=== PATIENT | male | born 1955 | race Caucasian/White ===

== ENCOUNTER 2019-12-10 06:35 | Inpatient (IN) | payer BC, OTHER ==
[~2019-12-10] VITALS: Ht 177.8 cm; Wt 90.7 kg
[2019-12-10 06:35] VITALS: BP_SYST 151
[2019-12-10] MEDS ORDERED: NACL 0.9% 1,000 ML IV ONE (06:47)
[2019-12-10] MEDS ORDERED: HYDR-3917 PO (07:37)
[2019-12-10] MEDS ORDERED: MULT-1089 PO (07:37)
[2019-12-10] MEDS ORDERED: RIVA10TA PO (07:37)
[2019-12-10] MEDS ORDERED: PRAS25CA7 PO (07:37)
[2019-12-10] MEDS ORDERED: METO50TA7 PO (07:37)
[2019-12-10] MEDS ORDERED: SILD20TA PO (07:37)
[2019-12-10] MEDS ORDERED: GABA-533 PO (07:37)
[2019-12-10] MEDS ORDERED: METH750T3 PO (07:37)
[2019-12-10] MEDS ORDERED: LIP40 PO (07:37)
[2019-12-10] MEDS ORDERED: TAMS-11 PO (07:37)
[2019-12-10] MEDS ORDERED: VITA1CAP PO (07:37)
[2019-12-10] MEDS ORDERED: CLON2TAB11 PO (07:37)
[2019-12-10] MEDS ORDERED: METH2.5T PO (07:37)
[2019-12-10] MEDS ORDERED: DULO60CA41 PO (07:37)
[2019-12-10] MEDS ORDERED: HYDR200T80 PO (07:37)
[2019-12-10] MEDS ORDERED: DOCU-144 PO (07:37)
[2019-12-10] MEDS ORDERED: DEXT10TA18 PO (07:37)
[2019-12-10] MEDS ORDERED: MELA3TAB64 PO (07:37)
[2019-12-10] MEDS ORDERED: VITD2000 PO (07:37)
[2019-12-10] MEDS ORDERED: LISD60TA PO (07:37)
[2019-12-10] MEDS ORDERED: FOLI-43 PO (07:37)
[2019-12-10] MEDS ORDERED: ASPI-1153 PO (07:37)
[2019-12-10 07:41] LABS: BASOPHILS % (AUTO) 0.3 % (0.0-2.0); EOSINOPHILS # (AUTO) 0.1 K/uL (0.0-0.4); EOSINOPHILS % (AUTO) 2.5 % (0.0-4.0); HEMATOCRIT 43.6 % (36-54); HEMOGLOBIN 14.2 g/dL (14.0-18.0); LYMPHOCYTES # (AUTO) 1.4 K/uL (1.0-5.5); LYMPHOCYTES % (AUTO) 31.4 % (20.5-51.5); MEAN CORPUSCULAR HEMOGLOBIN 29 pg (27-31); MEAN CORPUSCULAR HGB CONC 33 % (32-36); MEAN CORPUSCULAR VOLUME 89 fL (79.0-98.0); MONOCYTES # (AUTO) 0.3 K/uL (0.0-1.0); NEUTROPHILS # (AUTO) 2.5 K/uL (1.8-7.7); NEUTROPHILS % (AUTO) 57.8 % (40.0-70.0); PLATELET COUNT (AUTO) 255 K/uL (130-430); RED BLOOD CELL COUNT(AUTO) 4.89 MIL/uL (4.2-6.2); WHITE BLOOD COUNT (AUTO) 4.4 K/uL (4.8-10.8)
[2019-12-10 07:50] LABS: PROTHROMBIN TIME 10.1 SECS (9.5-12.5)
[2019-12-10 07:54] LABS: CALCIUM 8.8 mg/dL (8.4-11.0); CREATININE 0.91 mg/dL (0.55-1.30); POTASSIUM 3.2 mmol/L (3.5-5.1)
[2019-12-10 07:58] LABS: ALBUMIN 3.8 g/dL (3.4-4.8); TOTAL BILIRUBIN 0.4 mg/dL (0.0-1.0)
[2019-12-10] MEDS ORDERED: DIPHENHYDRAMINE INJ 50 MG/ML VIAL IVP ONE (09:15)
[2019-12-10] MEDS ORDERED: methylPREDNISolone SOD SUCC/PF 62.5 MG/ML VIAL IVP ONE (09:15)
[2019-12-10] MEDS ORDERED: IOHEXOL 350 mgI/mL, 150 ML INFUS..BTL IV ONE (09:39)
[2019-12-10 11:00] LABS: BILIRUBIN,URINE NEGATIVE (NEGATIVE); BLOOD, URINE NEGATIVE (NEGATIVE); CLARITY/URINE CLEAR (CLEAR); COLOR,URINE YELLOW (YELLOW); GLUCOSE,URINE NEGATIVE (NEGATIVE); KETONES,URINE NEGATIVE (NEGATIVE); LEUKOCYTE ESTERASE ,URINE NEGATIVE (NEGATIVE); NITRITE, URINE NEGATIVE (NEGATIVE); PROTEIN URINE NEGATIVE (NEGATIVE); UROBILINOGEN,URINE 0.2 (0.2-1.0)
[2019-12-10 11:12] LABS: BARBITURATE, URINE NEGATIVE (NEG <=200); BENZODIAZEPINE, URINE NEGATIVE (NEG <=150); CANNABINOID, URINE NEGATIVE (NEG <=50); COCAINE, URINE NEGATIVE (NEG <=150); METHAMPHETAMINES SCREEN,URINE NEGATIVE (NEG <=500); OPIATE, URINE POSITIVE (NEG <=100); PHENCYCLIDINE SCREEN,URINE NEGATIVE (NEG <=25); UR TRICYCLIC ANTIDEPRESSANTS NEGATIVE (NEG <=300); URINE AMPHETAMINE POSITIVE (NEG <=500); URINE METHADONE NEGATIVE (NEG <=200); URINE OXYCODONE SCREEN NEGATIVE (NEG <=100); URINE PROPOXYPHENE SCREEN NEGATIVE (NEG <=300)
[2019-12-10] MEDS ORDERED: FLU VACC TS2019(65UP)/MF59C/PF 45 MCG/0.5 ML SYRINGE I.M. PRN (12:00)
[2019-12-10 16:45] VITALS: BP_SYST 109
[2019-12-10] MEDS ORDERED: ASPIRIN 325 MG TABLET (ECOTRIN) PO ONE (18:30)
[2019-12-10 20:00] VITALS: BP_SYST 143
[2019-12-10] MEDS: ATORVASTATIN 20 MG TABLET PO SCH (21:33)
[2019-12-10] MEDS: DULoxetine HCL 30 MG CAPSULE.DR (CYMBALTA) PO SCH (21:33)
[2019-12-10] MEDS: TAMSULOSIN HCL 0.4 MG CAP PO SCH (21:33)
[2019-12-10] MEDS: GABAPENTIN 400 MG CAPSULE PO SCH (21:34)
[2019-12-10] MEDS ORDERED: DIPHENHYDRAMINE HCL 25 MG CAPSULE PO PRN (22:45)
[2019-12-11] VITALS: BP_SYST 126
[2019-12-11 06:32] LABS: BASOPHILS % (AUTO) 0.3 % (0.0-2.0); EOSINOPHILS # (AUTO) 0.1 K/uL (0.0-0.4); EOSINOPHILS % (AUTO) 0.4 % (0.0-4.0); HEMOGLOBIN 13.7 g/dL (14.0-18.0); LYMPHOCYTES # (AUTO) 0.7 K/uL (1.0-5.5); LYMPHOCYTES % (AUTO) 4.3 % (20.5-51.5); MEAN CORPUSCULAR HEMOGLOBIN 29 pg (27-31); MEAN CORPUSCULAR HGB CONC 33 % (32-36); MEAN CORPUSCULAR VOLUME 88 fL (79.0-98.0); MONOCYTES # (AUTO) 0.5 K/uL (0.0-1.0); MONOCYTES % (AUTO) 3.1 % (1.7-9.3); NEUTROPHILS # (AUTO) 15.7 K/uL (1.8-7.7); NEUTROPHILS % (AUTO) 91.9 % (40.0-70.0); PLATELET COUNT (AUTO) 267 K/uL (130-430); RED BLOOD CELL COUNT(AUTO) 4.76 MIL/uL (4.2-6.2); RED CELL DISTRIBUTION WIDTH 16.7 % (9.0-15.0); WHITE BLOOD COUNT (AUTO) 17.1 K/uL (4.8-10.8)
[2019-12-11 07:03] LABS: CALCIUM 8.9 mg/dL (8.4-11.0); CREATININE 0.87 mg/dL (0.55-1.30); POTASSIUM 3.7 mmol/L (3.5-5.1); THYROID STIMULATING HORMONE 0.2 uIu/mL (0.36-3.74)
[2019-12-11 08:00] VITALS: BP_SYST 117
[2019-12-11] MEDS: GABAPENTIN 400 MG CAPSULE PO SCH ×2 (08:37→21:22)
[2019-12-11] MEDS: clonazePAM 0.5 MG TABLET PO SCH (08:37)
[2019-12-11] MEDS: ASPIRIN 325 MG TABLET (ECOTRIN) PO SCH (08:37)
[2019-12-11] MEDS: FOLIC ACID 1 MG TABLET PO SCH (08:37)
[2019-12-11] MEDS: METOPROLOL SUCCINATE 50 MG TAB.SR.24H (TOPROL XL) PO SCH (08:38)
[2019-12-11 08:39] LABS: ERYTHROCYTE SEDIMENTATION RATE 4 MM/HR (0-15)
[2019-12-11] MEDS: DULoxetine HCL 30 MG CAPSULE.DR (CYMBALTA) PO SCH ×2 (08:46→21:20)
[2019-12-11] MEDS ORDERED: ASPIRIN 81 MG TABLET(ECOTRIN) PO SCH (09:00)
[2019-12-11] MEDS ORDERED: LORazepam 2 MG/ML VIAL IVP ONE (10:45)
[2019-12-11] MEDS ORDERED: ASPIRIN 325 MG TABLET PO SCH (10:45)
[2019-12-11] MEDS ORDERED: LORazepam 2 MG/ML VIAL ONE (10:59)
[2019-12-11 12:38] VITALS: BP_SYST 136
[2019-12-11 16:41] VITALS: BP_SYST 131
[2019-12-11 20:00] VITALS: BP_SYST 115
[2019-12-11] MEDS: ATORVASTATIN 20 MG TABLET PO SCH (21:20)
[2019-12-11] MEDS: TAMSULOSIN HCL 0.4 MG CAP PO SCH (21:22)
[2019-12-12 03:35] VITALS: BP_SYST 120
[2019-12-12 08:00] VITALS: BP_SYST 124
[2019-12-12] MEDS: clonazePAM 0.5 MG TABLET PO SCH (09:00)
[2019-12-12] MEDS: DULoxetine HCL 30 MG CAPSULE.DR (CYMBALTA) PO SCH ×2 (09:03→21:00)
[2019-12-12] MEDS: GABAPENTIN 400 MG CAPSULE PO SCH ×2 (09:03→21:00)
[2019-12-12] MEDS: FOLIC ACID 1 MG TABLET PO SCH (09:04)
[2019-12-12] MEDS: METOPROLOL SUCCINATE 50 MG TAB.SR.24H (TOPROL XL) PO SCH (09:04)
[2019-12-12] MEDS: ASPIRIN 325 MG TABLET (ECOTRIN) PO SCH (09:04)
[2019-12-12] MEDS ORDERED: COMMUNICATION ORDER XX ONE (09:30)
[2019-12-12 12:36] VITALS: BP_SYST 92
[2019-12-12 17:33] VITALS: BP_SYST 125
[2019-12-12 19:30] VITALS: BP_SYST 134
[2019-12-12] MEDS: ATORVASTATIN 20 MG TABLET PO SCH (21:00)
[2019-12-12] MEDS ORDERED: clonazePAM 0.5 MG TABLET PO SCH (21:00)
[2019-12-12] MEDS: TAMSULOSIN HCL 0.4 MG CAP PO SCH (21:00)
== END 2019-12-12 22:08 | disposition home or self-care (01) | DRG 65 ==
LOC: SED 06:35 → STU 10:47 → UNDOADMIN 10:47 → STU 11:03
PROVIDERS: ADMIT Internal Medicine Hospice and Palliative Medicine; ATTEND Internal Medicine Hospice and Palliative Medicine
DX: I63.81 Other cerebral infarction due to occlusion or stenosis of small artery (principal); G81.91 Hemiplegia, unspecified affecting right dominant side; I10 Essential (primary) hypertension; G89.29 Other chronic pain; F15.10 Other stimulant abuse, uncomplicated; I25.10 Atherosclerotic heart disease of native coronary artery without angina pectoris; F98.8 Other specified behavioral and emotional disorders with onset usually occurring in childhood and adolescence; M21.372 Foot drop, left foot; Z79.899 Other long term (current) drug therapy; Z95.5 Presence of coronary angioplasty implant and graft; Z86.73 Personal history of transient ischemic attack (TIA), and cerebral infarction without residual deficits; Z79.82 Long term (current) use of aspirin; Z91.041 Radiographic dye allergy status; Z87.81 Personal history of (healed) traumatic fracture
CPT/HCPCS: 36415; 70450-TC; 70496; 70498; 70551; 71045; 80048; 80053; 80061; 80307; 81003; 84439; 84443-TC; 84484; 85025; 85610-TC; 85651-TC; 85730-TC; 86886; 86900; 86901; 93005; 93306; 96361; 96374; 96375; 99291; G0378; J1200; J2060; J2930; Q0163; Q9967

== ENCOUNTER 2021-02-16 16:53 | Emergency (ER) | payer OTHER ==
[~2021-02-16] VITALS: Ht 177.8 cm; Wt 93.0 kg
[~2021-02-16 16:53] MED LIST: ASPI-1393 PO; CLON2TAB11 PO; DOCU-144 PO; DULO60CA41 PO; FOLI-43 PO; GABA-533 PO; HYDR-3917 PO; HYDR200T80 PO; LIP40 PO; LISD60TA PO; MELA3TAB41 PO; METH-634 PO; METH2.5T PO; METO50TA7 PO; MULT-1089 PO; PRAS25CA7 PO; RIVA10TA PO; SILD20TA PO; TAMS-11 PO; VITA1CAP PO; VITD2000 PO
[2021-02-16 17:10] VITALS: BP_SYST 112
[2021-02-16] MEDS ORDERED: BACITRACIN 1 GM OINT TP ONE (17:30)
[2021-02-16 17:36] VITALS: BP_SYST 112
== END 2021-02-16 17:36 | disposition home or self-care (01) ==
LOC: SED 16:53
DX: S60.442A External constriction of right middle finger, initial encounter (principal); Z79.899 Other long term (current) drug therapy; W49.04XA Ring or other jewelry causing external constriction, initial encounter; Y93.89 Activity, other specified; Y92.89 Other specified places as the place of occurrence of the external cause; Y99.8 Other external cause status
CPT/HCPCS: 99284